=== PATIENT | male | born 1980 | race Two or more races ===

== ENCOUNTER 2022-01-25 19:24 | Inpatient (IN) | payer OTHER ==
[~2022-01-25] VITALS: Ht 297.2 cm; Wt 54.4 kg
== END 2022-01-27 18:17 | disposition home or self-care (01) | DRG 343 ==
LOC: ER 19:24 → SURG 01-26 10:07
PROVIDERS: Surgery; ADMIT Specialist; ATTEND Specialist
PROC: BW21ZZZ Computerized Tomography (CT Scan) of Abdomen and Pelvis (ICD-10-PCS; 2022-01-25)
PROC: 0DTJ4ZZ Resection of Appendix, Percutaneous Endoscopic Approach (ICD-10-PCS; principal; 2022-01-26 15:30)
DX: K35.890 Other acute appendicitis without perforation or gangrene (principal); Z20.822 Contact with and (suspected) exposure to COVID-19